=== PATIENT | male | born 1950 | race Caucasian/White ===

== ENCOUNTER 2016-03-27 17:53 | Emergency (ER) | payer MEDICARE, BC ==
[2016-03-27 18:30] VITALS: TEMP 100.2
[2016-03-27 19:08] LABS: BASOPHILS % (AUTO) 1 % (0-3); EOSINOPHILS % (AUTO) 1 % (0-9); HEMATOCRIT 36 % (39-53); MEAN CORPUSCULAR HGB CONC 35.6 gm/dl (32.0-36.0); MONOCYTES % (AUTO) 11.7 % (0-12); NEUTROPHILS % (AUTO) 80.5 % (37-80)
[2016-03-27 19:26] LABS: ALBUMIN 3.7 gm/dl (3.4-5.0); ALT 20 IU/L (14-63); CALCIUM 8.2 mg/dl (8.5-10.1); GLOM FILT RATE 74 mL/min (>60); SODIUM 132 mMol/L (136-145)
[2016-03-27 21:37] VITALS: RESP 18
[2016-03-27 21:38] VITALS: BP 123/67; PULSE 75; O2SAT 98
== END 2016-03-27 20:03 | disposition home or self-care (01) | DRG 948 ==
LOC: ED 17:53
DX: R53.1 Weakness (principal)
CPT/HCPCS: 71020; 80053; 84484; 85025; 87804; 93005; 99282; 99283

== ENCOUNTER 2016-08-09 09:42 | Outpatient (CLI) | payer MEDICARE, BC ==
[2016-03-27 21:38] VITALS: O2SAT 98
== END 2016-08-09 09:43 | disposition home or self-care (01) | DRG 566 ==
LOC: CONVCARE 09:42
PROVIDERS: ATTEND Orthopaedic Surgery
DX: Z96.641 Presence of right artificial hip joint (principal)
CPT/HCPCS: 72170; 73501

== ENCOUNTER 2017-05-04 20:36 | Emergency (ER) | payer MEDICARE, BC ==
[2017-05-04] MEDS ORDERED: SODIUM CHLORIDE 0.9% FLUSH 10 ML SOL IV PRN (20:42)
[2017-05-04] MEDS ORDERED: SODIUM CHLORIDE 0.9% 500 ML 500 ML IV ONE (21:01)
[2017-05-04 21:04] LABS: BASOPHILS % (AUTO) 1 % (0-3); EOSINOPHILS % (AUTO) 2 % (0-9); HEMATOCRIT 40 % (39-53); MEAN CORPUSCULAR HGB CONC 36.2 gm/dl (32.0-36.0); MEAN CORPUSCULAR VOLUME 87 fL (80-100); NEUTROPHILS % (AUTO) 65.5 % (37-80)
[2017-05-04 21:23] LABS: CALCIUM 8.1 mg/dl (8.5-10.1); GLOM FILT RATE 82 mL/min (>60)
[2017-05-04 21:28] LABS: POTASSIUM 4.9 mMol/L (3.5-5.1); SODIUM 135 mMol/L (136-145)
[2017-05-04 21:49] VITALS: O2SAT 99
[2017-05-04 22:07] VITALS: BP 132/81; PULSE 54; RESP 13; TEMP 98
== END 2017-05-04 22:18 | disposition home or self-care (01) | DRG 312 ==
LOC: ED 20:36
DX: R55 Syncope and collapse (principal); E87.1 Hypo-osmolality and hyponatremia; R00.1 Bradycardia, unspecified
CPT/HCPCS: 36415; 80048; 82550; 84484; 85025; 93005; 96365; 99284

== ENCOUNTER 2018-07-09 07:37 | Day surgery (SDC) | payer MEDICARE, BC ==
[2018-07-09] MEDS ORDERED: LIDOCAINE HCL 1% MPF 30 SOL ONE (08:08)
[2018-07-09] MEDS ORDERED: PROPOFOL 500 MG/50 ML EMU IV ONE (08:08)
[2018-07-09 09:40] VITALS: BP 141/84; PULSE 55; RESP 16; TEMP 97.1; O2SAT 96
== END 2018-07-09 10:02 | disposition home or self-care (01) | DRG 951 ==
LOC: SURG 07:37
PROVIDERS: ATTEND Surgery
DX: Z12.11 Encounter for screening for malignant neoplasm of colon (principal); K57.32 Diverticulitis of large intestine without perforation or abscess without bleeding; Z80.0 Family history of malignant neoplasm of digestive organs
CPT/HCPCS: J2001; J2704